=== PATIENT | female | born 1945 ===

== ENCOUNTER 2023-09-14 07:22 | Day surgery (SDC) | payer OTHER ==
[~2023-09-14 07:22] MED LIST: VITACEL TABLET1 EACH; VITAMINS
[2023-09-14] MEDS ORDERED: METRONIDAZOLE/SODIUM CHLORIDE 500 MG/100 ML PIGGYBACK IV ONE ×2 (09:27→12:30)
[2023-09-14] MEDS ORDERED: CEFTRIAXONE SODIUM 2,000 MG VIAL ONE (09:27)
[2023-09-14] MEDS ORDERED: POVIDONE-IODINE 118 ML BOTT TOP ONE ×3 (10:01→12:45)
[2023-09-14] MEDS ORDERED: HEMOSTATIC MATRIX 1 KIT KIT TOP ONE (10:01)
[2023-09-14] MEDS ORDERED: BUPIVACAINE HCL/PF 0.5% 30ML ML ONE (10:01)
[2023-09-14] MEDS ORDERED: DIBUCAINE 30 GM TUBE ONE ×2 (10:01→12:09)
[2023-09-14] MEDS ORDERED: LIDOCAINE HCL 1%/Epi 20ML VIAL IJ ONE (10:01)
[2023-09-14] MEDS ORDERED: DIBUCAINE 30 GM TUBE RECTAL ONE (12:45)
[2023-09-14] MEDS ORDERED: LIDOCAINE HCL 1% 200MG/20ML VIAL IJ ONE (12:45)
[2023-09-14] MEDS ORDERED: CEFTRIAXONE SODIUM 2,000 MG VIAL IV ONE (12:45)
[2023-09-14] MEDS ORDERED: BUPIVACAINE HCL 30 ML VIAL IJ ONE (12:45)
[2023-09-14] MEDS ORDERED: ONDANSETRON HCL 2 MG/ML VIAL ONE (13:43)
== END 2023-09-14 17:40 | disposition home or self-care (01) ==
LOC: CIR.AMB 07:22
PROVIDERS: ATTEND Colon & Rectal Surgery
DX: K64.2 Third degree hemorrhoids (principal); K64.8 Other hemorrhoids; Z88.6 Allergy status to analgesic agent; Z20.822 Contact with and (suspected) exposure to COVID-19

== ENCOUNTER 2023-09-14 22:02 | Emergency (ER) | payer OTHER ==
[~2023-09-14] VITALS: Ht 162.6 cm; Wt 72.6 kg
== END 2023-09-15 00:17 | disposition home or self-care (01) ==
LOC: ER 22:02
DX: R33.8 Other retention of urine (principal); I10 Essential (primary) hypertension; Z88.6 Allergy status to analgesic agent